=== PATIENT | female | born 1980 | race African-American/Black ===

== ENCOUNTER 2018-05-03 14:53 | Emergency (ER) | payer OTHER ==
[~2018-05-03] VITALS: Ht 160 cm; Wt 97.4 kg
[2018-05-03 16:01] LABS: HEMATOCRIT 32.6 % (36.0-46.0); HEMOGLOBIN 10.7 G/DL (11.9-15.5); MCHC 32.8 G/DL (30.0-36.0); MCV 85.3 FL (83-99); RBC DIS.WIDTH-CV 17.5 % (11.8-14.6); RBC DIS.WIDTH-SD 54.4 % (39-53); RED BLOOD COUNT 3.82 M/uL (3.80-5.20); WHITE BLOOD COUNT 7.1 K/uL (4.1-10.2)
[2018-05-03 16:10] LABS: CHLORIDE 109 mEq/L (99-109); POTASSIUM 4.1 mEq/L (3.7-5.4); SODIUM 137 mEq/L (136-147)
[2018-05-03 16:11] LABS: GLUCOSE 103 mg/dL (70-99)
[2018-05-03 16:15] LABS: CREATININE 0.8 mg/dL (0.6-1.3)
[2018-05-03 16:16] LABS: UREA NITROGEN (BUN) 7 mg/dL (9-23)
[2018-05-03 16:18] LABS: CREATINE KINASE 157 IU/L (1-294); GFR ESTIMATE (CALCULATED) > 59 mL/min/; TOTAL CK 157 IU/L (1-294)
[2018-05-03 16:23] LABS: TROP-I INTERPRETATION NEGATIVE; TROPONIN-I < 0.01 ng/mL (0.0-0.30)
[2018-05-03 16:24] LABS: CK-MB 1.1 ng/mL (0.0-4.9); CKMB RELATIVE INDEX 0.7 (0.0-3.9); QUANTITATIVE HCG < 4.0 MIU/ML
[2018-05-03 16:34] LABS: PLAT.SUFFICIENCY ADEQUATE
[2018-05-03 16:37] LABS: PLATELET COUNT 276 K/uL (156-360)
[2018-05-03 18:06] VITALS: BP 120/90
== END 2018-05-03 18:07 | disposition home or self-care (01) ==
LOC: EME 14:53
DX: E86.0 Dehydration (principal); I05.1 Rheumatic mitral insufficiency; M79.7 Fibromyalgia; G43.909 Migraine, unspecified, not intractable, without status migrainosus; F98.8 Other specified behavioral and emotional disorders with onset usually occurring in childhood and adolescence; F41.9 Anxiety disorder, unspecified; F32.9 Major depressive disorder, single episode, unspecified; Z86.79 Personal history of other diseases of the circulatory system
CPT/HCPCS: 71046; 80048; 82550; 82553; 84484; 84702; 85027; 93005; 99281; 99284; J2405; J7030